=== PATIENT | female | born 1985 ===

== ENCOUNTER → 2020-05-11 | Outpatient (CLI) | payer OTHER ==
[~2020-05-11] MED LIST: BUPR150T2; CETI10 PO; FAMO20 PO; HYDACE5 PO; LEVFLO250 PO; MEDR10 PO; MONT10T; ORTHO NOVUM; PROM25 PO; RXDIPHSY PO; ZOVIA
[2020-05-14 08:52] LABS: HPV 16 Negative (Negative); HPV 18 Negative (Negative); HPV OTHER HR TYPES Negative (Negative)
== END ==
LOC: LAB 15:50 → LAB SHORT 15:50
PROVIDERS: Obstetrics & Gynecology
DX: Z01.419 Encounter for gynecological examination (general) (routine) without abnormal findings (principal)
CPT/HCPCS: 87624; G0123

== ENCOUNTER → 2025-01-22 | Outpatient (CLI) | payer OTHER | LOC: LAB 13:29 → LAB SHORT 13:29 | PROVIDERS: Obstetrics & Gynecology | DX: Z01.419 Encounter for gynecological examination (general) (routine) without abnormal findings (principal) | CPT/HCPCS: 87624; G0145 ==